=== PATIENT | male | born 1975 | race Caucasian/White ===

== ENCOUNTER 2017-05-31 05:36 | Inpatient (IN) | payer MEDICAID ==
--- NOTE | 2017-05-31 05:41 | C.PDOC ---
History Of Present Illness 41 year old male brought in via EMS from long-term for a complaint of SOB for the past 3 days. Patient is well known to ED; he has a Hx of ETOH/drug abuse and is a heavy smoker. Patient was given 125 solumedrol enroute along with 2 nebulizers , one with duoneb and another with albuterol. Denies chest pain, nausea, or palpitations. Chief Complaint (Nursing): Shortness Of Breath History Per: Patient History/Exam Limitations: no limitations Onset/Duration Of Symptoms: Days Current Symptoms Are (Timing): Still Present Initiating Event: Other (Not known) Current Respiratory Medications: None Associated Symptoms: denies: Fever, Chills, Chest Pain Recent travel outside of the [place]: No Past Medical History Reviewed: Historical Data, Nursing Documentation, Vital Signs Vital Signs: Last Vital Signs Temp 98.3 F 05/31/17 05:39 Pulse 95 H 05/31/17 06:19 Resp 18 05/31/17 06:19 BP 107/71 05/31/17 05:39 Pulse Ox 95 05/31/17 06:19 - Medical History PMH: No Chronic Diseases Surgical History: No Surg Hx - [facility] DETOXIFICATION SERVICES FOR SUBSTANCE ABUSE TREATMENT (06/04/16) INJECT/INFUSE NEC (10/03/14) Family History: States: Unknown Family Hx - Social History Hx Alcohol Use: Yes Hx Substance Use: Yes - Immunization History Hx Tetanus Toxoid Vaccination: No Hx Influenza Vaccination: No Hx Pneumococcal Vaccination: No Review Of Systems Constitutional: Negative for: Fever, Chills Cardiovascular: Negative for: Chest Pain, Palpitations Respiratory: Positive for: Shortness of Breath, Wheezing Gastrointestinal: Negative for: Nausea, Vomiting Neurological: Negative for: Weakness, Numbness Physical Exam - Physical Exam Appears: Non-toxic Skin: Normal Color, Warm, Dry Head: Atraumatic, Normacephalic Oral Mucosa: Moist Chest: Symmetrical, No Tenderness Cardiovascular: Rhythm Regular, No Murmur Respiratory: No Rales, No Rhonchi, Wheezing (Diffuse expiratory) Gastrointestinal/Abdominal: Soft, No Tenderness Neurological/Psych: Oriented x3, Normal Speech, Normal Cognition ED Course And Treatment - Laboratory Results Result Diagrams: 05/31/17 05:59 05/31/17 05:59 Progress Note: EKG, blood work, CXR, and urinalysis ordered. Disposition - Disposition Disposition Time: 07:00 Condition: FAIR Forms: [facility] (Irish) - Clinical Impression Clinical Impression: Dyspnea - Scribe Statement The provider has reviewed the documentation as recorded by the Scribe Baldemar Melissa All medical record entries made by the Scribe were at my direction and personally dictated by me. I have reviewed the chart and agree that the record accurately reflects my personal performance of the history, physical exam, medical decision making, and the department course for this patient. I have also personally directed, reviewed, and agree with the discharge instructions and disposition. Physician Patient Turnover Patient Signed Over To: Priscilla Tinsley Handoff Comments: labs and dispo pending
[2017-05-31 06:03] LABS: BASO # 0.1 K/uL (0.0-0.2); EOS # 1.2 K/uL (0.0-0.7); EOS % 10.2 % (0.0-4.0); HEMATOCRIT 39.3 % (35.0-51.0); LYMPH # 3.2 K/uL (1.0-4.3); LYMPH % 27.5 % (20.0-40.0); MEAN CELL VOLUME 82.4 fL (80.0-94.0); MEAN CORPUSCULAR HEMOGLOBIN 27.5 pg (27.0-31.0); MEAN CORPUSCULAR HGB CONC 33.3 g/dL (33.0-37.0); MEAN PLATELET VOLUME 8.6 fL (7.2-11.7); MONO # 1.1 K/uL (0.0-0.8); MONO % 9.1 % (0.0-10.0); RED CELL DISTRIBUTION WIDTH 13.5 % (11.5-14.5); WHITE BLOOD COUNT 11.6 K/uL (4.8-10.8)
[2017-05-31 06:14] LABS: INR 1.2
[2017-05-31] MEDS ORDERED: Albuterol-Ipratrop 3 mg / 0.5 (3 ml) UD IH STA (06:34)
[2017-05-31 06:41] LABS: ALB/GLOB RATIO 1.3 (1.0-2.1); ALKALINE PHOSPHATASE 73 U/L (38-126); ALT/SGPT 34 U/L (21-72); AST/SGOT 30 U/L (17-59); BILIRUBIN,TOTAL 0.5 mg/dL (0.2-1.3); BLOOD UREA NITROGEN 11 mg/dL (9-20); CALCIUM 8.9 mg/dl (8.6-10.4); CARBON DIOXIDE 25 mmol/L (22-30); CHLORIDE 99 mmol/L (98-107); GFR AFRICAN-AMERICAN > 60; GLUCOSE,RANDOM 104 mg/dL (75-110); POTASSIUM 3.9 mmol/L (3.6-5.2); SODIUM 136 mmol/L (132-148); TOTAL PROTEIN 6.8 g/dL (6.3-8.3)
[2017-05-31] MEDS ORDERED: Albuterol-Ipratrop 3 mg / 0.5 (3 ml) UD ONE (06:45)
[2017-05-31 07:25] LABS: URINE BILIRUBIN NEGATIVE (NEGATIVE); URINE COLOR YELLOW (YELLOW); URINE GLUCOSE (UA) Normal (Normal); URINE KETONE NEGATIVE (NEGATIVE)
[2017-05-31 07:26] LABS: RBC URINE < 1 /hpf (0-3); URINE BLOOD NEGATIVE (NEGATIVE); URINE LEUKOCYTE ESTERASE NEGATIVE Leu/uL (Negative); URINE PROTEIN NEGATIVE (NEGATIVE); URINE UROBILINOGEN Normal mg/dL (0.2-1.0)
--- NOTE | 2017-05-31 09:43 | RAD ---
PROCEDURE: CHEST RADIOGRAPH, 1 VIEW HISTORY: SOB COMPARISON: No prior FINDINGS: LUNGS: Mild left basilar atelectasis PLEURA: No pneumothorax or pleural fluid seen. CARDIOVASCULAR: Normal. OSSEOUS STRUCTURES: No significant abnormalities. VISUALIZED UPPER ABDOMEN: Normal. OTHER FINDINGS: None. IMPRESSION: Mild left basilar atelectasis
--- NOTE | 2017-05-31 12:04 | NM ---
VQ scan Technique: 7.2 mCi technetium 99-m Xe-133 Gas. 3.4 mCI technetium 99-m MAA administered intravenously. Comparison: Correlation is made to chest x-ray of same day. Findings: Perfusion images demonstrating moderate sized single mismatched perfusion defect within the left upper lobe. Activity otherwise extends expected margin of the lung periphery. Ventilation images do not show any significant areas of ventilation defects. Impression: Intermediate probability for pulmonary embolus.
[2017-05-31] MEDS ORDERED: Enoxaparin 100 mg Syringe SC STA (12:14)
--- NOTE | 2017-05-31 18:53 | CP.PCM.HP ---
Past Patient History - Past Medical History & Family History Past Medical History?: Yes - Past Social History Smoking Status: Heavy Smoker > 10 Cigarettes Daily - CARDIAC Hx Cardiac Disorders: No Hx Hypertension: No - PULMONARY Hx Chronic Obstructive Pulmonary Disease (COPD): Yes Hx Tuberculosis: No - NEUROLOGICAL Hx Neurological Disorder: No Hx Seizures: No - HEENT Hx HEENT Problems: No - RENAL Hx Chronic Kidney Disease: No - HEMATOLOGICAL/ONCOLOGICAL Hx Blood Disorders: No Hx Human Immunodeficiency Virus (HIV): No - INTEGUMENTARY Hx Dermatological Problems: No - MUSCULOSKELETAL/RHEUMATOLOGICAL Hx Musculoskeletal Disorders: Yes Hx Falls: Yes - GASTROINTESTINAL Hx Gastrointestinal Disorders: No - GENITOURINARY/GYNECOLOGICAL Hx Genitourinary Disorders: No Hx Sexually Transmitted Disorders: No - PSYCHIATRIC Hx Psychophysiologic Disorder: Yes Hx Substance Use: Yes (4-5 bags heroin a day) - SURGICAL HISTORY Hx Surgeries: No Hx Orthopedic Surgery: Yes ("nail in my thigh, had to open to remove it") Other/Comment: RIGHT KNEE SURGERY - ANESTHESIA Hx Anesthesia: Yes Hx Anesthesia Reactions: No Meds Allergies/Adverse Reactions: Allergies Allergy/AdvReac Type Severity Reaction Status Date / Time APPLE Allergy Uncoded 05/31/17 05:45 SHRIMP Allergy Uncoded 05/31/17 05:45 Physical Exam - Constitutional Appears: Well - Head Exam Head Exam: ATRAUMATIC, NORMAL INSPECTION, NORMOCEPHALIC - Eye Exam Eye Exam: EOMI, Normal appearance, PERRL Pupil Exam: NORMAL ACCOMODATION, PERRL - ENT Exam ENT Exam: Mucous Membranes Moist, Normal Exam - Neck Exam Neck exam: Positive for: Normal Inspection - Respiratory Exam Respiratory Exam: Decreased Breath Sounds - Cardiovascular Exam Cardiovascular Exam: REGULAR RHYTHM, +S1, +S2 - GI/Abdominal Exam GI & Abdominal Exam: Diminished Bowel Sounds, Soft - Rectal Exam Rectal Exam: Deferred Results - Vital Signs Recent Vital Signs: Last Vital Signs Temp 97.8 F 05/31/17 15:36 Pulse 80 05/31/17 15:36 Resp 18 05/31/17 15:40 BP 119/76 05/31/17 15:36 Pulse Ox 96 05/31/17 15:36 - Labs Result Diagrams: 05/31/17 05:59 05/31/17 05:59 Labs: Laboratory Results - last 24 hr 05/31/17 18:25 D-Dimer, Quantitative 330 H
[2017-05-31] MEDS ORDERED: Moxifloxacin IV 400mg/250ml NS 400 MG/250 ML BAG IVPB SCH (20:15)
[2017-05-31] MEDS: Enoxaparin 100 mg Syringe SC SCH (21:23)
[2017-05-31] MEDS: guaiFENesin DM 200 mg-20 mg/10 ml UD PO PRN (21:52)
[2017-05-31] MEDS: Azithromycin 500 MG in Sodium Chloride 0.9% 250 ML IVPB SCH (21:52)
[2017-06-01] MEDS: Albuterol-Ipratrop 3 mg / 0.5 (3 ml) UD INH SCH ×4 (02:28→19:02)
[2017-06-01 07:29] LABS: BASO # 0.1 K/uL (0.0-0.2); BASO % 0.8 % (0.0-2.0); EOS # 0.1 K/uL (0.0-0.7); EOS % 0.6 % (0.0-4.0); HEMATOCRIT 40.5 % (35.0-51.0); LYMPH # 2.7 K/uL (1.0-4.3); LYMPH % 16.9 % (20.0-40.0); MEAN CELL VOLUME 82.8 fL (80.0-94.0); MEAN CORPUSCULAR HEMOGLOBIN 27.5 pg (27.0-31.0); MEAN CORPUSCULAR HGB CONC 33.3 g/dL (33.0-37.0); MEAN PLATELET VOLUME 9.4 fL (7.2-11.7); MONO # 1.2 K/uL (0.0-0.8); MONO % 7.7 % (0.0-10.0); NRBC % 0.1 % (0.0-2.0); RED CELL DISTRIBUTION WIDTH 13.5 % (11.5-14.5)
[2017-06-01 07:42] LABS: CHLORIDE 102 mmol/L (98-107)
--- NOTE | 2017-06-01 07:42 | CP.PCM.CON ---
History of Present Illness - History of Present Illness History of Present Illness: Consultation request for evaluation of PE and SOB HPI: 41-year-old male with history of alc Alcohol and drug abuse presenting with complaints of shortness of breath and cough for 3 days. Patient underwent VQ scan in the emergency room showing moderate probability of pulmonary embolism. Initiated on anticoagulation for pulmonary embolism. No risk factors for hypercoagulable state. Heavy smoker and drug user active cocaine snorted. No family history of PE or thromboembolism. Review of Systems - Review of Systems All systems: reviewed and no additional remarkable complaints except - Constitutional Constitutional: As Per HPI, Fatigue - EENT Eyes: As Per HPI Ears: As Per HPI Nose/Mouth/Throat: As Per HPI - Cardiovascular Cardiovascular: As Per HPI, Dyspnea - Respiratory Respiratory: As Per HPI - Gastrointestinal Gastrointestinal: As Per HPI - Genitourinary Genitourinary: As Per HPI - Reproductive: Male Reproductive:Male: As Per HPI - Musculoskeletal Musculoskeletal: As Per HPI - Integumentary Integumentary: As Per HPI - Neurological Neurological: As Per HPI - Psychiatric Psychiatric: As Per HPI - Endocrine Endocrine: As Per HPI - Hematologic/Lymphatic Hematologic: As Per HPI Past Patient History - Past Medical History & Family History Past Medical History?: Yes Pertinent Family History: HTN - Past Social History Smoking Status: Heavy Smoker > 10 Cigarettes Daily - CARDIAC Hx Cardiac Disorders: No Hx Hypertension: No - PULMONARY Hx Chronic Obstructive Pulmonary Disease (COPD): Yes Hx Tuberculosis: No - NEUROLOGICAL Hx Neurological Disorder: No Hx Seizures: No - HEENT Hx HEENT Problems: No - RENAL Hx Chronic Kidney Disease: No - HEMATOLOGICAL/ONCOLOGICAL Hx Blood Disorders: No Hx Human Immunodeficiency Virus (HIV): No - INTEGUMENTARY Hx Dermatological Problems: No - MUSCULOSKELETAL/RHEUMATOLOGICAL Hx Musculoskeletal Disorders: Yes Hx Falls: Yes - GASTROINTESTINAL Hx Gastrointestinal Disorders: No - GENITOURINARY/GYNECOLOGICAL Hx Genitourinary Disorders: No Hx Sexually Transmitted Disorders: No - PSYCHIATRIC Hx Psychophysiologic Disorder: Yes Hx Substance Use: Yes (4-5 bags heroin a day) - SURGICAL HISTORY Hx Surgeries: No Hx Orthopedic Surgery: Yes ("nail in my thigh, had to open to remove it") Other/Comment: RIGHT KNEE SURGERY - ANESTHESIA Hx Anesthesia: Yes Hx Anesthesia Reactions: No Meds Allergies/Adverse Reactions: Allergies Allergy/AdvReac Type Severity Reaction Status Date / Time APPLE Allergy Uncoded 05/31/17 05:45 SHRIMP Allergy Uncoded 05/31/17 05:45 - Medications Medications: Current Medications Albuterol/Ipratropium (Duoneb 3 Mg/0.5 Mg (3 Ml) Ud) 3 ml INH RQ6 [facility] Last Admin: 06/01/17 02:28 Dose: 3 ml Enoxaparin Sodium (Lovenox) 100 mg SC Q12 [facility] Last Admin: 05/31/17 21:23 Dose: 100 mg Guaifenesin/Dextromethorphan (Robitussin Dm) 10 ml PO Q4H PRN PRN Reason: Cough and congestion Last Admin: 05/31/17 21:52 Dose: 10 ml Azithromycin 500 mg/ Sodium (Chloride) 250 mls @ 167 mls/hr IVPB Q24H [facility] Last Admin: 05/31/17 21:52 Dose: 167 mls/hr Ceftriaxone Sodium 1 gm/ (Sodium Chloride) 100 mls @ 200 mls/hr IVPB Q24H [facility] Last Admin: 05/31/17 20:58 Dose: 200 mls/hr Montelukast Sodium (Singulair) 10 mg PO HS [facility] Last Admin: 05/31/17 21:22 Dose: 10 mg Fluticasone/Salmeterol (Advair Diskus 250/50) 1 puff INH RQ12 [facility] Physical Exam - Constitutional Appears: Well - Head Exam Head Exam: ATRAUMATIC, NORMAL INSPECTION, NORMOCEPHALIC - Eye Exam Eye Exam: EOMI, Normal appearance, PERRL Pupil Exam: NORMAL ACCOMODATION, PERRL - ENT Exam ENT Exam: Mucous Membranes Moist, Normal Exam - Neck Exam Neck exam: Positive for: Normal Inspection - Respiratory Exam Respiratory Exam: Clear to Auscultation Bilateral, NORMAL BREATHING PATTERN - Cardiovascular Exam Cardiovascular Exam: REGULAR RHYTHM, RRR, +S1, +S2, Systolic Murmur - GI/Abdominal Exam GI & Abdominal Exam: Normal Bowel Sounds, Soft. absent: Tenderness - Extremities Exam Extremities exam: Positive for: normal inspection - Back Exam Back exam: NORMAL INSPECTION - Neurological Exam Neurological exam: Alert, CN II-XII Intact, Normal Gait, Oriented x3, Reflexes Normal - Psychiatric Exam Psychiatric exam: Normal Affect, Normal Mood - Skin Skin Exam: Dry, Intact, Normal Color, Warm Results - Vital Signs Recent Vital Signs: Last Vital Signs Temp 98.3 F 06/01/17 07:24 Pulse 78 06/01/17 07:24 Resp 20 06/01/17 07:24 BP 95/60 L 06/01/17 07:24 Pulse Ox 96 06/01/17 07:24 - Labs Result Diagrams: 06/01/17 07:13 06/01/17 07:13 Labs: Laboratory Results - last 24 hr 05/31/17 06/01/17 18:25 07:13 WBC 16.0 H RBC 4.89 Hgb 13.5 Hct 40.5 MCV 82.8 MCH 27.5 MCHC 33.3 RDW 13.5 Plt Count 380 MPV 9.4 Neut % (Auto) 74.0 Lymph % (Auto) 16.9 L [place] % (Auto) 7.7 Eos % (Auto) 0.6 Baso % (Auto) 0.8 Neut # 11.9 H Lymph # 2.7 Will # 1.2 H Eos # 0.1 Baso # 0.1 D-Dimer, Quantitative 330 H Assessment & Plan (1) Pulmonary embolism Assessment and Plan: v/q scan intermediate probability CT Angio PE protocol echo cont with AC Status: Acute (2) Dyspnea Assessment and Plan: ? 2' to interstitial lung dz from cocaine snorting pulm eval consider steroids Status: Acute (3) COPD exacerbation Assessment and Plan: 2' to smoking and snorting cocaine bronhodilators Status: Acute
[2017-06-01 07:43] LABS: POTASSIUM 4.1 mmol/L (3.6-5.2); SODIUM 140 mmol/L (132-148)
[2017-06-01 07:45] LABS: ALB/GLOB RATIO 1.1 (1.0-2.1); AST/SGOT 24 U/L (17-59); BILIRUBIN,TOTAL 0.5 mg/dL (0.2-1.3); CARBON DIOXIDE 25 mmol/L (22-30); GFR AFRICAN-AMERICAN > 60; TOTAL PROTEIN 7.3 g/dL (6.3-8.3)
[2017-06-01 07:46] LABS: ALKALINE PHOSPHATASE 81 U/L (38-126); ALT/SGPT 31 U/L (21-72); BLOOD UREA NITROGEN 12 mg/dL (9-20); CALCIUM 9.2 mg/dl (8.6-10.4); GLUCOSE,RANDOM 88 mg/dL (75-110)
[2017-06-01] MEDS: Fluticasone-Salmeterol 250-50mcg Diskus INH SCH ×2 (08:30→19:02)
[2017-06-01] MEDS: Enoxaparin 100 mg Syringe SC SCH ×2 (09:10→21:28)
[2017-06-01] MEDS ORDERED: Enoxaparin 100 mg Syringe SC SCH (10:00)
--- NOTE | 2017-06-01 10:21 | CP.PCM.CON ---
History of Present Illness - History of Present Illness History of Present Illness: reason for consultation: shortness of breath and abnormal VQ scan 41 year old male brought in via EMS from half-way for a complaint of SOB for the past 3 days. Patient has a Hx of ETOH/drug abuse and is a heavy smoker. Shortness of breath is both at rest and on exertion and associated with dry cough. VQ scan done in the emergency room consistent with intermediate probability for pulmonary embolism. Patient started on Lovenox. Denies any swelling or pain in the legs. Patient seen lying comfortably in no acute distress but complaining of dry cough Review of Systems - Review of Systems All systems: reviewed and no additional remarkable complaints except (shortness of breath and cough) Past Patient History - Past Medical History & Family History Past Medical History?: Yes - Past Social History Smoking Status: Heavy Smoker > 10 Cigarettes Daily - CARDIAC Hx Cardiac Disorders: No Hx Hypertension: No - PULMONARY Hx Chronic Obstructive Pulmonary Disease (COPD): Yes Hx Tuberculosis: No - NEUROLOGICAL Hx Neurological Disorder: No Hx Seizures: No - HEENT Hx HEENT Problems: No - RENAL Hx Chronic Kidney Disease: No - HEMATOLOGICAL/ONCOLOGICAL Hx Blood Disorders: No Hx Human Immunodeficiency Virus (HIV): No - INTEGUMENTARY Hx Dermatological Problems: No - MUSCULOSKELETAL/RHEUMATOLOGICAL Hx Musculoskeletal Disorders: Yes Hx Falls: Yes - GASTROINTESTINAL Hx Gastrointestinal Disorders: No - GENITOURINARY/GYNECOLOGICAL Hx Genitourinary Disorders: No Hx Sexually Transmitted Disorders: No - PSYCHIATRIC Hx Psychophysiologic Disorder: Yes Hx Substance Use: Yes (4-5 bags heroin a day) - SURGICAL HISTORY Hx Surgeries: No Hx Orthopedic Surgery: Yes ("nail in my thigh, had to open to remove it") Other/Comment: RIGHT KNEE SURGERY - ANESTHESIA Hx Anesthesia: Yes Hx Anesthesia Reactions: No Meds Allergies/Adverse Reactions: Allergies Allergy/AdvReac Type Severity Reaction Status Date / Time APPLE Allergy Uncoded 05/31/17 05:45 SHRIMP Allergy Uncoded 05/31/17 05:45 - Medications Medications: Current Medications Albuterol/Ipratropium (Duoneb 3 Mg/0.5 Mg (3 Ml) Ud) 3 ml INH RQ6 [facility] Last Admin: 06/01/17 08:30 Dose: 3 ml Enoxaparin Sodium (Lovenox) 100 mg SC Q12 [facility] Last Admin: 06/01/17 09:10 Dose: 100 mg Guaifenesin/Dextromethorphan (Robitussin Dm) 10 ml PO Q4H PRN PRN Reason: Cough and congestion Last Admin: 05/31/17 21:52 Dose: 10 ml Azithromycin 500 mg/ Sodium (Chloride) 250 mls @ 167 mls/hr IVPB Q24H [facility] Last Admin: 05/31/17 21:52 Dose: 167 mls/hr Ceftriaxone Sodium 1 gm/ (Sodium Chloride) 100 mls @ 200 mls/hr IVPB Q24H [facility] Last Admin: 05/31/17 20:58 Dose: 200 mls/hr Montelukast Sodium (Singulair) 10 mg PO HS [facility] Last Admin: 05/31/17 21:22 Dose: 10 mg Fluticasone/Salmeterol (Advair Diskus 250/50) 1 puff INH RQ12 [facility] Last Admin: 06/01/17 08:30 Dose: Not Given Physical Exam - Constitutional Appears: No Acute Distress - Head Exam Head Exam: ATRAUMATIC, NORMOCEPHALIC - Eye Exam Eye Exam: Normal appearance - ENT Exam ENT Exam: Mucous Membranes Moist - Neck Exam Neck exam: Positive for: Normal Inspection - Respiratory Exam Respiratory Exam: Clear to Auscultation Bilateral - Cardiovascular Exam Cardiovascular Exam: REGULAR RHYTHM - GI/Abdominal Exam GI & Abdominal Exam: Normal Bowel Sounds, Soft - Extremities Exam Extremities exam: Positive for: normal inspection - Neurological Exam Neurological exam: Alert, Oriented x3 Results - Vital Signs Recent Vital Signs: Last Vital Signs Temp 98.3 F 06/01/17 07:24 Pulse 78 06/01/17 07:24 Resp 20 06/01/17 07:24 BP 95/60 L 06/01/17 07:24 Pulse Ox 96 06/01/17 07:24 - Labs Result Diagrams: 06/01/17 07:13 06/01/17 07:13 Labs: Laboratory Results - last 24 hr 05/31/17 06/01/17 06/01/17 18:25 07:13 07:13 WBC 16.0 H RBC 4.89 Hgb 13.5 Hct 40.5 MCV 82.8 MCH 27.5 MCHC 33.3 RDW 13.5 Plt Count 380 MPV 9.4 Neut % (Auto) 74.0 Lymph % (Auto) 16.9 L [place] % (Auto) 7.7 Eos % (Auto) 0.6 Baso % (Auto) 0.8 Neut # 11.9 H Lymph # 2.7 [place] # 1.2 H Eos # 0.1 Baso # 0.1 D-Dimer, Quantitative 330 H Sodium 140 Potassium 4.1 Chloride 102 Carbon Dioxide 25 Anion Gap 17 BUN 12 Creatinine 0.5 L Est GFR ( Amer) > 60 Est GFR (Non-Af Amer) > 60 Random Glucose 88 Calcium 9.2 Total Bilirubin 0.5 AST 24 ALT 31 Alkaline Phosphatase 81 Total Protein 7.3 Albumin 3.8 Globulin 3.5 Albumin/Globulin Ratio 1.1 Assessment & Plan (1) Dyspnea Status: Acute Comment: VQ scan consistent with intermediate probability. Consider CT angio. Continue Lovenox for now. Venous Doppler lower extremities (2) COPD exacerbation Status: Acute Comment: patient is long history of smoking. Continue nebulizer treatment and Advair. Continue antitussive
--- NOTE | 2017-06-01 15:49 | CP.PCM.PN ---
Subjective - Date & Time of Evaluation Date of Evaluation: 06/01/17 Time of Evaluation: 10:20 - Subjective Subjective: clinically same Objective - Vital Signs/Intake and Output Vital Signs (last 24 hours): Temp Pulse Resp BP Pulse Ox 98.3 F 78 20 95/60 L 96 06/01/17 07:24 06/01/17 07:24 06/01/17 07:24 06/01/17 07:24 06/01/17 07:24 Intake and Output: 06/01/17 06/01/17 06:59 18:59 Intake Total 570 300 Balance 570 300 - Medications Medications: Current Medications Albuterol/Ipratropium (Duoneb 3 Mg/0.5 Mg (3 Ml) Ud) 3 ml INH RQ6 [facility] Last Admin: 06/01/17 13:40 Dose: 3 ml Enoxaparin Sodium (Lovenox) 100 mg SC Q12 [facility] Last Admin: 06/01/17 09:10 Dose: 100 mg Guaifenesin/Dextromethorphan (Robitussin Dm) 10 ml PO Q4H PRN PRN Reason: Cough and congestion Last Admin: 05/31/17 21:52 Dose: 10 ml Azithromycin 500 mg/ Sodium (Chloride) 250 mls @ 167 mls/hr IVPB Q24H [facility] Last Admin: 05/31/17 21:52 Dose: 167 mls/hr Ceftriaxone Sodium 1 gm/ (Sodium Chloride) 100 mls @ 200 mls/hr IVPB Q24H [facility] Last Admin: 05/31/17 20:58 Dose: 200 mls/hr Lorazepam (Ativan) 0.5 mg PO TID PRN PRN Reason: Anxiety Methadone HCl (Methadone) 10 mg PO ONCE ONE Stop: 06/01/17 19:01 Methadone HCl (Methadone) 5 mg PO DAILY [facility] Stop: 06/04/17 10:01 Montelukast Sodium (Singulair) 10 mg PO HS [facility] Last Admin: 05/31/17 21:22 Dose: 10 mg Fluticasone/Salmeterol (Advair Diskus 250/50) 1 puff INH RQ12 [facility] Last Admin: 06/01/17 08:30 Dose: Not Given Trazodone HCl (Desyrel) 100 mg PO HS [facility] - Labs Labs: 06/01/17 07:13 06/01/17 07:13 PT 13.3 SECONDS (9.7-12.2) H 05/31/17 05:59 INR 1.2 05/31/17 05:59 APTT 29 SECONDS (21-34) 05/31/17 05:59 - Constitutional Appears: Well - Head Exam Head Exam: ATRAUMATIC, NORMAL INSPECTION, NORMOCEPHALIC - Eye Exam Eye Exam: EOMI, Normal appearance, PERRL Pupil Exam: NORMAL ACCOMODATION, PERRL - ENT Exam ENT Exam: Mucous Membranes Moist, Normal Exam - Neck Exam Neck Exam: Full ROM, Normal Inspection. absent: Lymphadenopathy - Respiratory Exam Respiratory Exam: Decreased Breath Sounds - Cardiovascular Exam Cardiovascular Exam: REGULAR RHYTHM, +S1, +S2 - GI/Abdominal Exam GI & Abdominal Exam: Soft, Diminished Bowel Sounds - Rectal Exam Rectal Exam: Deferred
--- NOTE | 2017-06-01 16:18 | PCM.PSYCH ---
Initial Psychiatric Evaluation - Initial Psychiatric Evaluation Type of Admission: Voluntary Legal Status: Capacity Chief Complaint (in patient's own words): Consultation to speak with psychiatrist about opiate dependence History of Present Illness and Precipitating Events: Pt is a 41 year old man with a history of COPD and opiate dependence who presented to the ED 05/31/17 for dyspnea, COPD exacerbation, and pulmonary embolism. He reports that heroin is the only thing that was "helping him breath " before he presented to the ED. Psychiatry was called for consultation because pt has a 4 year history of using opiates on and off. For the past two years he reports to snorting 4-6 bags daily. His last use of heroin was 05/30/17. He also reports that he uses suboxone and brought one 8 mg film to the hospital in one of his pockets. He reported to have used about 2 or 4 mg of suboxone early this morning. Pt agreed to hand over his remaining suboxone to the nurse (witnessed). Pt agrees to start methadone detox here. Pt reports he is not experiencing symptoms of withdrawal at this time "but will soon" Pt denies the use of alcohol and other drugs. He reports to smoke 1 pack of cigarettes daily. Pt refuses nicotine patch. He denies prior psychiatric hospitalization and history of outpt care, trauma or suicide. Past Medical History: COPD Family Medical History: Denies Social History: Single, has 2 children, lives in a jail, works in construction Current Medications: Active Medications Generic Name Dose Route Start Last Admin Trade Name Freq PRN Reason Stop Dose Admin Albuterol/Ipratropium 3 ml 06/01/17 02:00 06/01/17 13:40 Duoneb 3 Mg/0.5 Mg (3 Ml) Ud INH 3 ml RQ6 [facility] Administration Enoxaparin Sodium 100 mg 05/31/17 22:00 06/01/17 09:10 Lovenox SC 100 mg Q12 [facility] Administration Guaifenesin/Dextromethorphan 10 ml 05/31/17 21:12 05/31/17 21:52 Robitussin Dm PO 10 ml Q4H PRN Administration Cough and congestion Azithromycin 500 mg/ Sodium 250 mls @ 167 mls/hr 05/31/17 22:00 05/31/17 21: 52 Chloride IVPB 167 mls/hr Q24H [facility] Administration Ceftriaxone Sodium 1 gm/ 100 mls @ 200 mls/hr 05/31/17 21:00 05/31/17 20:58 Sodium Chloride IVPB 200 mls/hr Q24H [facility] Administration Lorazepam 0.5 mg 06/01/17 11:29 Ativan PO TID PRN Anxiety Methadone HCl 10 mg 06/01/17 19:00 Methadone PO 06/01/17 19:01 ONCE ONE Methadone HCl 5 mg 06/02/17 10:00 Methadone PO 06/04/17 10:01 DAILY [facility] Montelukast Sodium 10 mg 05/31/17 22:00 05/31/17 21:22 Singulair PO 10 mg HS [facility] Administration Fluticasone/Salmeterol 1 puff 06/01/17 08:00 06/01/17 08:30 Advair Diskus 250/50 INH Not Given RQ12 [facility] Trazodone HCl 100 mg 06/01/17 22:00 Desyrel PO HS [facility] Past Psychiatric History - Past Psychiatric History Previous Treatment History: None Pertinent Medical Hx (Current Medical&Sleep Prob, Allergies): Allergies Allergy/AdvReac Type Severity Reaction Status Date / Time APPLE Allergy Uncoded 05/31/17 05:45 SHRIMP Allergy Uncoded 05/31/17 05:45 No Known Home Med 05/31/17 Review of Systems - Psychiatric Psychiatric: Abnormal Sleep Pattern. absent: Hallucinations, Homicidal Ideation , Paranoia, Suicidal Ideation Mental Status Examination - Personal Presentation Personal Presentation: Looks stated age - Affect Affect: Constricted - Motor Activity Motor Activity: Calm - Reliability in Providing Information Reliability in Providing Information: Good - Speech Speech: Organized - Mood Mood: Anxious - Formal Thought Process Formal Thought Process: No Impairment - Obsessions/Compulsions Obsessions: No Compulsions: No - Cognitive Functions Orientation: Person, Place, Situation, Time Sensorium: Alert Attention/Concentration: Attentive Estimate of Intelligence: Average Judgement: Intact, as evidence by: Insight regarding need for hospitalization Memory: Recent intact, as evidence by: Ability to recall events of the day, Remote intact, as evidenced by: Abilit to recall sig. life events - Risk Risk: Withdrawal, Diminished functioning - Strength & Assets Inventory Strength & Assets Inventory: Cooperative - Limitations Limitations: Living alone DSM 5 DX - DSM 5 DSM 5 Diagnosis: Opioid withdrawal Opioid use d/o - severe - Recommended/Plan of Treatment Treatment Recommendations and Plan of Treatment: Opioid use disorder: Psychoeducation Supportive therapy, individual therapy Use [place] for abstinence Opioid withdrawal Psychoeducation Supportive therapy, individual therapy Methadone taper Lorazepam 0.5 mg PO TID PRN Trazodone 100 mg PO prn 32 min - Smoking Cessation Smoking Cessation Initiated: No Reason for not providing: Pt refuses nicotine patch
--- NOTE | 2017-06-01 16:23 | PCM.PSYCH ---
Initial Psychiatric Evaluation - Initial Psychiatric Evaluation Legal Status: Capacity Chief Complaint (in patient's own words): Consultation to speak with psychiatrist about heroin dependence Current Medications: Active Medications Generic Name Dose Route Start Last Admin Trade Name Loulou PRN Reason Stop Dose Admin Albuterol/Ipratropium 3 ml 06/01/17 02:00 06/01/17 13:40 Duoneb 3 Mg/0.5 Mg (3 Ml) Ud INH 3 ml RQ6 [facility] Administration Enoxaparin Sodium 100 mg 05/31/17 22:00 06/01/17 09:10 Lovenox SC 100 mg Q12 [facility] Administration Guaifenesin/Dextromethorphan 10 ml 05/31/17 21:12 05/31/17 21:52 Robitussin Dm PO 10 ml Q4H PRN Administration Cough and congestion Azithromycin 500 mg/ Sodium 250 mls @ 167 mls/hr 05/31/17 22:00 05/31/17 21: 52 Chloride IVPB 167 mls/hr Q24H [facility] Administration Ceftriaxone Sodium 1 gm/ 100 mls @ 200 mls/hr 05/31/17 21:00 05/31/17 20:58 Sodium Chloride IVPB 200 mls/hr Q24H [facility] Administration Lorazepam 0.5 mg 06/01/17 11:29 Ativan PO TID PRN Anxiety Methadone HCl 10 mg 06/01/17 19:00 Methadone PO 06/01/17 19:01 ONCE ONE Methadone HCl 5 mg 06/02/17 10:00 Methadone PO 06/04/17 10:01 DAILY [facility] Montelukast Sodium 10 mg 05/31/17 22:00 05/31/17 21:22 Singulair PO 10 mg HS [facility] Administration Fluticasone/Salmeterol 1 puff 06/01/17 08:00 06/01/17 08:30 Advair Diskus 250/50 INH Not Given RQ12 [facility] Trazodone HCl 100 mg 06/01/17 22:00 Desyrel PO HS [facility] Past Psychiatric History - Past Psychiatric History Pertinent Medical Hx (Current Medical&Sleep Prob, Allergies): Allergies Allergy/AdvReac Type Severity Reaction Status Date / Time APPLE Allergy Uncoded 05/31/17 05:45 SHRIMP Allergy Uncoded 05/31/17 05:45 No Known Home Med 05/31/17
--- NOTE | 2017-06-01 17:42 | CARD ---
APPROVED REPORT EXAM: Two-dimensional and M-mode echocardiogram with Doppler and color Doppler. Other Information Quality : GoodRhythm : NSR INDICATION Dyspnea Pulmonary Embolism COPD ALCOHOL ABUSE 2D DIMENSIONS IVSd0.8 (0.7-1.1cm)LVDd4.9 (3.9-5.9cm) PWd0.7 (0.7-1.1cm)LVDs3.5 (2.5-4.0cm) FS (%) 27.4 %LVEF (%)53.2 (>50%) M-Mode DIMENSIONS Left Atrium (MM)3.78 (2.5-4.0cm)Aortic Root3.58 (2.2-3.7cm) Aortic Cusp Exc.2.40 (1.5-2.0cm) Mitral Valve MV E Ujcbgshr88.8cm/sMV A Qitmgklt46.1cm/sE/A ratio1.2 TDI E/Lateral E'0.0E/Medial E'0.0 Tricuspid Valve TR Peak Autfoswt622ev/sTR Peak Gr.[id number] LEFT VENTRICLE The left ventricle is normal size. There is normal left ventricular wall thickness. The left ventricular function is normal. The left ventricular ejection fraction is within the normal range. There is normal LV segmental wall motion. The left ventricular diastolic function is normal. RIGHT VENTRICLE The right ventricle is normal size. ATRIA The right atrium size is normal. AORTIC VALVE The aortic valve is normal in structure. MITRAL VALVE Mitral regurgitation is trace. TRICUSPID VALVE There is trace tricuspid regurgitation. <Conclusion> Normal LV systolic function. Normal chamber size. Trace MR. Trace TR.
[2017-06-01] MEDS: guaiFENesin DM 200 mg-20 mg/10 ml UD PO PRN (19:00)
[2017-06-01] MEDS: Azithromycin 500 MG in Sodium Chloride 0.9% 250 ML IVPB SCH (21:30)
[2017-06-02 00:41] VITALS: RESP 20
[2017-06-02] MEDS: Albuterol-Ipratrop 3 mg / 0.5 (3 ml) UD INH SCH ×4 (01:28→20:02)
[2017-06-02] MEDS: Fluticasone-Salmeterol 250-50mcg Diskus INH SCH ×2 (07:48→20:02)
[2017-06-02] MEDS: Enoxaparin 100 mg Syringe SC SCH (11:10)
[2017-06-02] MEDS ORDERED: DiphenhydrAMINE 50 mg/ml Inj IVP STA (11:42)
--- NOTE | 2017-06-02 11:52 | CARD ---
APPROVED REPORT EKG Measurement Heart [id number] <Conclusion> Normal sinus rhythm Normal ECG
--- NOTE | 2017-06-02 18:11 | CP.PCM.PN ---
Subjective - Date & Time of Evaluation Date of Evaluation: 06/02/17 Time of Evaluation: 09:40 - Subjective Subjective: clinically same Objective - Vital Signs/Intake and Output Vital Signs (last 24 hours): Temp Pulse Resp BP Pulse Ox 97.9 F 91 H 20 103/69 98 06/02/17 08:00 06/02/17 08:00 06/02/17 08:00 06/02/17 08:00 06/02/17 08:00 Intake and Output: 06/02/17 06/02/17 06:59 18:59 Intake Total 850 Balance 850 - Medications Medications: Current Medications Albuterol/Ipratropium (Duoneb 3 Mg/0.5 Mg (3 Ml) Ud) 3 ml INH RQ6 [facility] Last Admin: 06/02/17 14:03 Dose: Not Given Enoxaparin Sodium (Lovenox) 100 mg SC Q12 [facility] Last Admin: 06/02/17 11:10 Dose: 100 mg Guaifenesin/Dextromethorphan (Robitussin Dm) 10 ml PO Q4H PRN PRN Reason: Cough and congestion Last Admin: 06/01/17 19:00 Dose: 10 ml Azithromycin 500 mg/ Sodium (Chloride) 250 mls @ 167 mls/hr IVPB Q24H [facility] Last Admin: 06/01/17 21:30 Dose: 167 mls/hr Ceftriaxone Sodium 1 gm/ (Sodium Chloride) 100 mls @ 200 mls/hr IVPB Q24H [facility] Last Admin: 06/01/17 20:53 Dose: 200 mls/hr Lorazepam (Ativan) 0.5 mg PO TID PRN PRN Reason: Anxiety Methadone HCl (Methadone) 5 mg PO DAILY [facility] Stop: 06/04/17 10:01 Last Admin: 06/02/17 11:10 Dose: 5 mg Montelukast Sodium (Singulair) 10 mg PO HS [facility] Last Admin: 06/01/17 21:27 Dose: 10 mg Fluticasone/Salmeterol (Advair Diskus 250/50) 1 puff INH RQ12 [facility] Last Admin: 06/02/17 07:48 Dose: 1 puff Trazodone HCl (Desyrel) 100 mg PO HS [facility] Last Admin: 06/01/17 21:27 Dose: 100 mg - Labs Labs: 06/01/17 07:13 06/01/17 07:13 PT 13.3 SECONDS (9.7-12.2) H 05/31/17 05:59 INR 1.2 05/31/17 05:59 APTT 29 SECONDS (21-34) 05/31/17 05:59 - Constitutional Appears: Well - Head Exam Head Exam: ATRAUMATIC, NORMAL INSPECTION, NORMOCEPHALIC - Eye Exam Eye Exam: EOMI, Normal appearance, PERRL Pupil Exam: NORMAL ACCOMODATION, PERRL - ENT Exam ENT Exam: Mucous Membranes Moist, Normal Exam - Neck Exam Neck Exam: Full ROM, Normal Inspection. absent: Lymphadenopathy - Respiratory Exam Respiratory Exam: Decreased Breath Sounds - Cardiovascular Exam Cardiovascular Exam: REGULAR RHYTHM, +S1, +S2 - GI/Abdominal Exam GI & Abdominal Exam: Soft, Diminished Bowel Sounds - Rectal Exam Rectal Exam: Deferred
[2017-06-02] MEDS ORDERED: Enoxaparin 100 mg Syringe SC SCH (18:17)
--- NOTE | 2017-06-02 18:17 | CT ---
PROCEDURE: CT Chest with contrast (Pulmonary Angiogram) HISTORY: r/o pulm embolism COMPARISON: Comparison is made to the previous V/Q scan dated 05/31/2017 TECHNIQUE: Axial computed tomography images were obtained of the chest in the pulmonary arterial phase of enhancement. Coronal and sagittal reformatted images were created and reviewed. Intravenous contrast dose: 100 mL Visipaque 320. Radiation dose: Total exam DLP = 498.51 mGy-cm. This CT exam was performed using one or more of the following dose reduction techniques: Automated exposure control, adjustment of the mA and/or kV according to patient size, and/or use of iterative reconstruction technique. FINDINGS: PULMONARY ARTERIES: Unremarkable. No pulmonary embolism. AORTA: No acute findings. No thoracic aortic aneurysm. LUNGS: There is infiltrate and focal opacity at the left lower lobe suspicious for pneumonia. There are also patchy ground-glass opacities at the right lung nonspecific and may re- related to infection or inflammatory process PLEURAL SPACES: Unremarkable. No effusion or pneuomothorax. HEART: Unremarkable. No cardiomegaly. No significant pericardial effusion. LYMPH NODES: No lymphadenopathy. BONES, CHEST WALL: Unremarkable. No fracture or destructive lesion OTHER FINDINGS: Unremarkable. IMPRESSION: No evidence of pulmonary embolus. Focal opacity at the left lower lobe suspicious for pneumonia. Please correlate clinically. Small foci of ground-glass opacities are seen at the central portion of the right lung, nonspecific may related to infection or inflammatory process. Otherwise no evidence of acute pathology in the chest.
--- NOTE | 2017-06-02 18:24 | CP.PCM.PN ---
Subjective - Date & Time of Evaluation Date of Evaluation: 06/02/17 Time of Evaluation: 18:00 - Subjective Subjective: Patient seen and examined. Complaining of cough with blood-tinged sputum On Lovenox CT angiogram done Afebrile No chest pain No shortness of breath Objective - Vital Signs/Intake and Output Vital Signs (last 24 hours): Temp Pulse Resp BP Pulse Ox 97.9 F 91 H 20 103/69 98 06/02/17 08:00 06/02/17 08:00 06/02/17 08:00 06/02/17 08:00 06/02/17 08:00 Intake and Output: 06/02/17 06/02/17 06:59 18:59 Intake Total 850 Balance 850 - Medications Medications: Current Medications Albuterol/Ipratropium (Duoneb 3 Mg/0.5 Mg (3 Ml) Ud) 3 ml INH RQ6 [facility] Last Admin: 06/02/17 14:03 Dose: Not Given Enoxaparin Sodium (Lovenox) 75 mg SC Q12 [facility] Guaifenesin/Dextromethorphan (Robitussin Dm) 10 ml PO Q4H PRN PRN Reason: Cough and congestion Last Admin: 06/01/17 19:00 Dose: 10 ml Azithromycin 500 mg/ Sodium (Chloride) 250 mls @ 167 mls/hr IVPB Q24H [facility] Last Admin: 06/01/17 21:30 Dose: 167 mls/hr Ceftriaxone Sodium 1 gm/ (Sodium Chloride) 100 mls @ 200 mls/hr IVPB Q24H [facility] Last Admin: 06/01/17 20:53 Dose: 200 mls/hr Lorazepam (Ativan) 0.5 mg PO TID PRN PRN Reason: Anxiety Methadone HCl (Methadone) 5 mg PO DAILY [facility] Stop: 06/04/17 10:01 Last Admin: 06/02/17 11:10 Dose: 5 mg Montelukast Sodium (Singulair) 10 mg PO [facility] Last Admin: 06/01/17 21:27 Dose: 10 mg Fluticasone/Salmeterol (Advair Diskus 250/50) 1 puff INH RQ12 [facility] Last Admin: 06/02/17 07:48 Dose: 1 puff Trazodone HCl (Desyrel) 100 mg PO [facility] Last Admin: 06/01/17 21:27 Dose: 100 mg - Labs Labs: 06/01/17 07:13 06/01/17 07:13 PT 13.3 SECONDS (9.7-12.2) H 05/31/17 05:59 INR 1.2 05/31/17 05:59 APTT 29 SECONDS (21-34) 05/31/17 05:59 - Head Exam Head Exam: ATRAUMATIC, NORMOCEPHALIC - Eye Exam Eye Exam: Normal appearance - ENT Exam ENT Exam: Mucous Membranes Moist - Neck Exam Neck Exam: Normal Inspection - Respiratory Exam Respiratory Exam: Clear to Ausculation Bilateral - Cardiovascular Exam Cardiovascular Exam: REGULAR RHYTHM - GI/Abdominal Exam GI & Abdominal Exam: Soft, Normal Bowel Sounds - Extremities Exam Extremities Exam: Full ROM, Normal Inspection Assessment and Plan (1) Dyspnea Assessment & Plan: Awaiting official report for CAT scan of the chest No pulmonary embolism seen Continue Lovenox for now Status: Acute (2) COPD exacerbation Status: Acute
[2017-06-02] MEDS ORDERED: Enoxaparin 80 mg Syringe SC SCH (19:00)
--- NOTE | 2017-06-02 19:17 | CP.PCM.PN ---
Subjective - Date & Time of Evaluation Date of Evaluation: 06/02/17 Time of Evaluation: 19:35 - Subjective Subjective: c/o hemoptysis CT angio -ve for PE Objective - Vital Signs/Intake and Output Vital Signs (last 24 hours): Temp Pulse Resp BP Pulse Ox 97.9 F 91 H 20 103/69 98 06/02/17 08:00 06/02/17 08:00 06/02/17 08:00 06/02/17 08:00 06/02/17 08:00 - Medications Medications: Current Medications Albuterol/Ipratropium (Duoneb 3 Mg/0.5 Mg (3 Ml) Ud) 3 ml INH RQ6 [facility] Last Admin: 06/02/17 14:03 Dose: Not Given Enoxaparin Sodium (Lovenox) 75 mg SC Q12H [facility] Guaifenesin/Dextromethorphan (Robitussin Dm) 10 ml PO Q4H PRN PRN Reason: Cough and congestion Last Admin: 06/01/17 19:00 Dose: 10 ml Azithromycin 500 mg/ Sodium (Chloride) 250 mls @ 167 mls/hr IVPB Q24H [facility] Last Admin: 06/01/17 21:30 Dose: 167 mls/hr Ceftriaxone Sodium 1 gm/ (Sodium Chloride) 100 mls @ 200 mls/hr IVPB Q24H [facility] Last Admin: 06/01/17 20:53 Dose: 200 mls/hr Lorazepam (Ativan) 0.5 mg PO TID PRN PRN Reason: Anxiety Methadone HCl (Methadone) 5 mg PO DAILY [facility] Stop: 06/04/17 10:01 Last Admin: 06/02/17 11:10 Dose: 5 mg Montelukast Sodium (Singulair) 10 mg PO HS [facility] Last Admin: 06/01/17 21:27 Dose: 10 mg Fluticasone/Salmeterol (Advair Diskus 250/50) 1 puff INH RQ12 [facility] Last Admin: 06/02/17 07:48 Dose: 1 puff Trazodone HCl (Desyrel) 100 mg PO HS [facility] Last Admin: 06/01/17 21:27 Dose: 100 mg - Labs Labs: 06/01/17 07:13 06/01/17 07:13 PT 13.3 SECONDS (9.7-12.2) H 05/31/17 05:59 INR 1.2 05/31/17 05:59 APTT 29 SECONDS (21-34) 05/31/17 05:59 - Constitutional Appears: Well - Head Exam Head Exam: ATRAUMATIC, NORMAL INSPECTION, NORMOCEPHALIC - Eye Exam Eye Exam: EOMI, Normal appearance, PERRL Pupil Exam: NORMAL ACCOMODATION, PERRL - ENT Exam ENT Exam: Mucous Membranes Moist, Normal Exam - Neck Exam Neck Exam: Full ROM, Normal Inspection. absent: Lymphadenopathy - Respiratory Exam Respiratory Exam: Clear to Ausculation Bilateral, Wheezes, NORMAL BREATHING PATTERN - Cardiovascular Exam Cardiovascular Exam: REGULAR RHYTHM, +S1, +S2, Murmur - GI/Abdominal Exam GI & Abdominal Exam: Soft, Normal Bowel Sounds. absent: Tenderness - Extremities Exam Extremities Exam: Full ROM, Normal Capillary Refill, Normal Inspection. absent : Joint Swelling, Pedal Edema - Back Exam Back Exam: NORMAL INSPECTION - Neurological Exam Neurological Exam: Alert, Awake, CN II-XII Intact, Normal Gait, Oriented x3 - Psychiatric Exam Psychiatric exam: Normal Affect, Normal Mood - Skin Skin Exam: Dry, Intact, Normal Color, Warm Assessment and Plan (1) Pulmonary embolism Assessment & Plan: CT angio -ve for PE dc AC echo normal RV fx Status: Acute (2) COPD exacerbation Assessment & Plan: 2' to smoking bronchodilators Status: Acute (3) Dyspnea Assessment & Plan: ? interstitial lung injury from snortig cocaine steroids Status: Acute
[2017-06-02] MEDS: Azithromycin 500 MG in Sodium Chloride 0.9% 250 ML IVPB SCH (21:13)
[2017-06-02] MEDS: guaiFENesin DM 200 mg-20 mg/10 ml UD PO PRN (22:46)
[2017-06-03 00:28] VITALS: O2SAT 95
[2017-06-03] MEDS: Albuterol-Ipratrop 3 mg / 0.5 (3 ml) UD INH SCH ×3 (01:25→13:06)
--- NOTE | 2017-06-03 07:25 | CP.PCM.PN ---
Subjective - Date & Time of Evaluation Date of Evaluation: 06/03/17 Time of Evaluation: 07:25 Objective - Vital Signs/Intake and Output Vital Signs (last 24 hours): Temp Pulse Resp BP Pulse Ox 97.6 F 100 H 20 104/64 95 06/02/17 23:05 06/02/17 23:05 06/02/17 23:05 06/02/17 23:05 06/02/17 23:05 Intake and Output: 06/03/17 06/03/17 06:59 18:59 Intake Total 650 Balance 650 - Medications Medications: Current Medications Albuterol/Ipratropium (Duoneb 3 Mg/0.5 Mg (3 Ml) Ud) 3 ml INH RQ6 [facility] Last Admin: 06/03/17 07:00 Dose: 3 ml Guaifenesin/Dextromethorphan (Robitussin Dm) 10 ml PO Q4H PRN PRN Reason: Cough and congestion Last Admin: 06/02/17 22:46 Dose: 10 ml Azithromycin 500 mg/ Sodium (Chloride) 250 mls @ 167 mls/hr IVPB Q24H [facility] Last Admin: 06/02/17 21:13 Dose: 167 mls/hr Ceftriaxone Sodium 1 gm/ (Sodium Chloride) 100 mls @ 200 mls/hr IVPB Q24H [facility] Last Admin: 06/02/17 20:12 Dose: 200 mls/hr Lorazepam (Ativan) 0.5 mg PO TID PRN PRN Reason: Anxiety Last Admin: 06/02/17 22:14 Dose: 0.5 mg Methadone HCl (Methadone) 5 mg PO DAILY [facility] Stop: 06/04/17 10:01 Last Admin: 06/02/17 11:10 Dose: 5 mg Montelukast Sodium (Singulair) 10 mg PO HS [facility] Last Admin: 06/02/17 21:13 Dose: 10 mg Fluticasone/Salmeterol (Advair Diskus 250/50) 1 puff INH RQ12 [facility] Last Admin: 06/02/17 20:02 Dose: 1 puff Trazodone HCl (Desyrel) 100 mg PO HS [facility] Last Admin: 06/02/17 21:13 Dose: 100 mg - Labs Labs: 06/01/17 07:13 06/01/17 07:13 PT 13.3 SECONDS (9.7-12.2) H 05/31/17 05:59 INR 1.2 05/31/17 05:59 APTT 29 SECONDS (21-34) 05/31/17 05:59 Assessment and Plan (1) Pulmonary embolism Status: Acute (2) COPD exacerbation Status: Acute (3) Dyspnea Status: Acute
[2017-06-03 08:08] VITALS: BP 119/72; PULSE 65; TEMP 97.3
[2017-06-03] MEDS: Fluticasone-Salmeterol 250-50mcg Diskus INH SCH (10:32)
--- NOTE | 2017-06-03 12:43 | PCM.PYCHPN ---
Psychiatric Progress Note - Psychiatric Progress Note Patient seen today, length of contact: 16 min Patient Chief Complaint: "I'm fine" Problems Identified/Issues Discussed: The pt is seen, chart reviewed, case discussed with staff. Support given, CBT and FL used briefly No new symptoms reported, improving slowly and needs more time No SEs from medications, risks discussed. After care discussed Medication Change: Yes Medical Record Reviewed: Yes Mental Status Examination - Cognitive Function Orientation: Person, Place, Situation, Time Memory: Intact Attention: WNL Concentration: WNL Association: WNL Fund of Knowledge: WNL - Mood Mood: Anxious - Affect Affect: Constricted - Speech Speech: Appropriate - Formal Thought Process Formal Thought Process: No Impairment - Suicidal Ideation Suicidal Ideation: No - Homicidal Ideation Homicidal Ideation: No Goal/Treatment Plan - Goal/Treatment Plan Progress Toward Problem(s) and Goals/Treatment Plan: Opioid use disorder: Psychoeducation Supportive therapy, individual therapy Use FL for abstinence Opioid withdrawal Psychoeducation Supportive therapy, individual therapy Methadone taper Lorazepam 0.5 mg PO TID PRN Trazodone 100 mg PO prn Psych will sign off now as he is stable
--- NOTE | 2017-06-03 13:50 | CP.PCM.PN ---
Subjective - Date & Time of Evaluation Date of Evaluation: 06/03/17 Time of Evaluation: 13:45 - Subjective Subjective: 41 Y/O MALE SEEN AND EXAMINED TODAY, DENIES ANY CHEST PAIN, RESP EASY AND UNLABORED, NAD. Objective - Vital Signs/Intake and Output Vital Signs (last 24 hours): Temp Pulse Resp BP Pulse Ox 97.3 F L 65 20 119/72 95 06/03/17 08:00 06/03/17 08:00 06/03/17 08:00 06/03/17 08:00 06/03/17 08:00 Intake and Output: 06/03/17 06/03/17 06:59 18:59 Intake Total 650 Balance 650 - Medications Medications: Current Medications Albuterol/Ipratropium (Duoneb 3 Mg/0.5 Mg (3 Ml) Ud) 3 ml INH RQ6 [facility] Last Admin: 06/03/17 13:06 Dose: Not Given Guaifenesin/Dextromethorphan (Robitussin Dm) 10 ml PO Q4H PRN PRN Reason: Cough and congestion Last Admin: 06/02/17 22:46 Dose: 10 ml Azithromycin 500 mg/ Sodium (Chloride) 250 mls @ 167 mls/hr IVPB Q24H [facility] Last Admin: 06/02/17 21:13 Dose: 167 mls/hr Ceftriaxone Sodium 1 gm/ (Sodium Chloride) 100 mls @ 200 mls/hr IVPB Q24H [facility] Last Admin: 06/02/17 20:12 Dose: 200 mls/hr Lorazepam (Ativan) 0.5 mg PO TID PRN PRN Reason: Anxiety Last Admin: 06/02/17 22:14 Dose: 0.5 mg Methadone HCl (Methadone) 5 mg PO DAILY [facility] Stop: 06/04/17 10:01 Last Admin: 06/03/17 09:05 Dose: 5 mg Montelukast Sodium (Singulair) 10 mg PO HS [facility] Last Admin: 06/02/17 21:13 Dose: 10 mg Fluticasone/Salmeterol (Advair Diskus 250/50) 1 puff INH RQ12 [facility] Last Admin: 06/03/17 10:32 Dose: 1 puff Trazodone HCl (Desyrel) 100 mg PO HS [facility] Last Admin: 06/02/17 21:13 Dose: 100 mg - Labs Labs: 06/01/17 07:13 06/01/17 07:13 PT 13.3 SECONDS (9.7-12.2) H 05/31/17 05:59 INR 1.2 05/31/17 05:59 APTT 29 SECONDS (21-34) 05/31/17 05:59 Assessment and Plan - Assessment and Plan (Free Text) Plan: 41 Y/O MALE WITH PMHX ADMITTED FOR COPD EXCERBATION, DYSPNEA VQ SCAN- INTERMEDIATE PROBABILITY FOR PE CT CHEST- NEGATIVE FOR PE PT CLEARED FOR D/C PER DR SHERMAN, DR PEREZ, DR HONEYCUTT NO NEED FOR BLOOD THINNER AT THIS TIME F/U W/PMD AND CARDIOLOGY
== END 2017-06-03 14:02 | disposition home or self-care (01) | DRG 541 ==
LOC: C.ER 05:36 → C.9E 12:38 → C.5T 14:18
PROVIDERS: ADMIT Internal Medicine Nephrology; ATTEND Internal Medicine Nephrology
PROC: HZ56ZZZ Individual Psychotherapy for Substance Abuse Treatment, Psychoeducation (ICD-10-PCS; principal; 2017-06-01)
PROC: HZ59ZZZ Individual Psychotherapy for Substance Abuse Treatment, Supportive (ICD-10-PCS; 2017-06-01)
DX: J44.1 Chronic obstructive pulmonary disease with (acute) exacerbation (principal); I26.99 Other pulmonary embolism without acute cor pulmonale; F11.23 Opioid dependence with withdrawal; F14.10 Cocaine abuse, uncomplicated; F17.210 Nicotine dependence, cigarettes, uncomplicated; F10.10 Alcohol abuse, uncomplicated

== ENCOUNTER 2018-02-20 14:57 | Emergency (ER) | payer MEDICAID ==
[2018-02-20 14:57] VITALS: BMI 26.6
[2018-02-20 15:09] VITALS: BP 125/77; PULSE 106; RESP 18; TEMP 97.6; O2SAT 98
--- NOTE | 2018-02-20 15:24 | C.PDOC ---
History Of Present Illness 42 year old male presents to the emergency department requesting detox from heroin. Patient reports he last used prior to arrival. Patient was evaluated at [facility] for the same request, but was referred to [facility] due to there being no available Detox beds in [place]. Patient denies suicidal ideation. REQUESTING HEROIN DETOX. 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 CHRISAL @ [facility] FOR SAME, REFERRED TO [facility] DUE TO NO DETOX BEDS @ [facility]. NO OTHER REPORTED SX. DENIES SI. EXAM NEG Time Seen by Provider: 02/20/18 15:24 Chief Complaint (Nursing): Substance Abuse History Per: Patient History/Exam Limitations: no limitations Onset/Duration Of Symptoms: Hrs Current Symptoms Are (Timing): Still Present Modifying Factor(s): Other (heroin) Associated Symptoms: denies: Suicidal Thoughts, Suicidal Plan Past Medical History Reviewed: Historical Data, Nursing Documentation, Vital Signs Vital Signs: Last Vital Signs Temp 97.6 F 02/20/18 15:06 Pulse 106 H 02/20/18 15:06 Resp 18 02/20/18 15:06 BP 125/77 02/20/18 15:06 Pulse Ox 98 02/20/18 15:40 - Medical History PMH: COPD, Pulmonary Embolism Denies: Diabetes, Hepatitis, HIV, HTN, Chronic Kidney Disease, Seizures, Sexually Transmitted Disease Surgical History: No Surg Hx - [facility] Procedures DETOXIFICATION SERVICES FOR SUBSTANCE ABUSE TREATMENT (06/04/16) INDIV PSYCHOTHERAPY FOR SUBSTANCE ABUSE TREATMENT, SUPPORT (05/31/17) INDIV PSYCHOTHERAPY FOR SUBSTANCE ABUSE, PSYCHOEDUCATION (05/31/17) INJECT/INFUSE NEC (10/03/14) Family History: States: No Known Family Hx - Social History Hx Alcohol Use: Yes Hx Substance Use: Yes (8-10 bags heroin a day) - Immunization History Hx Tetanus Toxoid Vaccination: No Hx Influenza Vaccination: No Hx Pneumococcal Vaccination: No Review Of Systems Except As Marked, All Systems Reviewed And Found Negative. Constitutional: Negative for: Fever, Chills Gastrointestinal: Negative for: Nausea Neurological: Positive for: Altered Mental Status (under the influence of heroin ) Physical Exam - Physical Exam Appears: Non-toxic, No Acute Distress Skin: Normal Color, Warm, Dry Head: Atraumatic, Normacephalic Eye(s): bilateral: Normal Inspection Oral Mucosa: Moist Chest: Symmetrical Cardiovascular: Rhythm Regular Respiratory: Normal Breath Sounds Neurological/Psych: Normal Speech, Normal Cognition ED Course And Treatment O2 Sat by Pulse Oximetry: 98 (RA) Pulse Ox Interpretation: Normal - Physician Consult Information Time Consulting Physician Contacted: 15:40 Outcome Of Conversation: D/W CRISIS, NO BEDS AVAIL Disposition Counseled Patient/Family Regarding: Diagnosis, Need For Followup - Disposition Referrals: [facility],DETOX PRESCREEN [Other] Disposition: HOME/ ROUTINE Disposition Time: 15:34 Condition: STABLE Instructions: Opioid Use Disorder Forms: [employer] ([place]) - Clinical Impression Clinical Impression: Opiate abuse, continuous - Scribe Statement The provider has reviewed the documentation as recorded by the Scribe (John Lamb) Provider Attestation: All medical record entries made by the Scribe were at my direction and personally dictated by me. I have reviewed the chart and agree that the record accurately reflects my personal performance of the history, physical exam, medical decision making, and the department course for this patient. I have also personally directed, reviewed, and agree with the discharge instructions and disposition.
== END 2018-02-20 15:55 | disposition home or self-care (01) ==
LOC: C.ER 14:57
DX: F11.10 Opioid abuse, uncomplicated (principal); J44.9 Chronic obstructive pulmonary disease, unspecified; Z86.711 Personal history of pulmonary embolism

== ENCOUNTER 2018-11-29 09:06 | Inpatient (IN) | payer MEDICAID ==
[2018-11-29 09:06] VITALS: BMI 27.4
--- NOTE | 2018-11-29 09:31 | C.PDOC ---
History Of Present Illness 43 y/o male with a PMHx of opioid abuse, COPD, depression, and alcoholism presents to the ED requesting detox. States he last used heroin at 4:00am, 2 bags intranasally. Patient also reports suicidal ideation since this morning. States he has a plan to jump off a bridge. No other physical complaints. Patient denies any homicidal ideation or hallucinations. No alcohol use. He denies having any pain, fever, tremors, palpitations, seizures, chest pain, SOB, abdominal pain, back pain, nausea, vomiting, numbness, weakness, paresthesias, or any other associated complaints. Time Seen by Provider: 11/29/18 09:07 Chief Complaint (Nursing): Psychiatric Evaluation History Per: Patient History/Exam Limitations: no limitations Onset/Duration Of Symptoms: Hrs Current Symptoms Are (Timing): Still Present Suicide/Self Injury Attempted (Context): None Modifying Factor(s): Other (Heroin) Associated Symptoms: Suicidal Thoughts, Suicidal Plan (to jump off bridge) Additional History Per: Prior Records Past Medical History Reviewed: Historical Data, Nursing Documentation, Vital Signs Vital Signs: Last Vital Signs Temp 98.1 F 11/29/18 09:18 Pulse 95 H 11/29/18 09:18 Resp 20 11/29/18 09:18 BP 111/65 11/29/18 09:18 Pulse Ox 98 11/29/18 09:18 - Medical History PMH: Bipolar Disorder, COPD, Depression, Pulmonary Embolism Denies: Diabetes, Hepatitis, HIV, HTN, Chronic Kidney Disease, Seizures, Sexually Transmitted Disease Other PMH: Opioid abuse, Alcohol abuse Other Surgeries: Right knee surgery - [facility] Procedures DETOXIFICATION SERVICES FOR SUBSTANCE ABUSE TREATMENT (06/04/16) INDIV PSYCHOTHERAPY FOR SUBSTANCE ABUSE TREATMENT, SUPPORT (05/31/17) INDIV PSYCHOTHERAPY FOR SUBSTANCE ABUSE, PSYCHOEDUCATION (05/31/17) INJECT/INFUSE NEC (10/03/14) Family History: States: Unknown Family Hx - Social History Hx Tobacco Use: Yes Hx Alcohol Use: Yes Hx Substance Use: Yes (8-10 bags heroin a day) - Immunization History Hx Tetanus Toxoid Vaccination: No Hx Influenza Vaccination: No Hx Pneumococcal Vaccination: No Review Of Systems Except As Marked, All Systems Reviewed And Found Negative. Constitutional: Negative for: Fever, Sweats Eyes: Negative for: Vision Change ENT: Negative for: Nose Congestion, Throat Pain Cardiovascular: Negative for: Chest Pain, Palpitations, Light Headedness Respiratory: Negative for: Cough, Shortness of Breath Gastrointestinal: Negative for: Nausea, Vomiting, Abdominal Pain Genitourinary: Negative for: Dysuria, Frequency Musculoskeletal: Negative for: Neck Pain, Back Pain Skin: Negative for: Rash Neurological: Negative for: Weakness, Numbness, Altered Mental Status, Headache, Dizziness Psych: Positive for: Suicidal ideation (with plan to jump off bridge). Negative for: Psychosis, Withdrawal, Other (HI, hallucinations) Physical Exam - Physical Exam Appears: Non-toxic, No Acute Distress Skin: Warm, Dry, No Rash Head: Atraumatic, Normacephalic Eye(s): bilateral: Normal Inspection, PERRL, EOMI Nose: Normal Oral Mucosa: Moist Neck: Normal ROM, Supple, No Other (no meningeal signs) Chest: Symmetrical Cardiovascular: Rhythm Regular, No Murmur Respiratory: Normal Breath Sounds, No Accessory Muscle Use, Other (No respiratory distress) Gastrointestinal/Abdominal: Soft, No Tenderness, No Distention Back: Normal Inspection, No CVA Tenderness Extremity: Normal ROM, Capillary Refill (<2s) Extremity: Bilateral: Atraumatic, Normal Color And Temperature Pulses: Left Radial: Normal, Right Radial: Normal Neurological/Psych: Oriented x3, Normal Speech, Normal Motor, Normal Sensation, Other (Flat affect) Gait: Steady ED Course And Treatment - Laboratory Results Result Diagrams: 11/29/18 09:51 11/29/18 09:51 O2 Sat by Pulse Oximetry: 98 (RA) Pulse Ox Interpretation: Normal Medical Decision Making Medical Decision Making: Impression: Suicidal ideation, Detox Plan: Labs ordered for medical clearance. Patient placed on 1:1 observation. Pending crisis evaluation. 1045 Labwork reviewed, patient is medically cleared for psychiatric evaluation. 1135 Patient is to be admitted to detox unit under Dr. Laura for opioid use disorder, severe. Pt in NAD with VSS at this time. Pt made aware of change in disposition. Disposition - Disposition Disposition: HOSPITALIZED Disposition Time: 11:33 Condition: STABLE - Clinical Impression Clinical Impression: Opioid use disorder, severe, dependence - PA / DOUBLER OPERATOR / Resident Statement MD/DO has reviewed & agrees with the documentation as recorded. - Scribe Statement The provider has reviewed the documentation as recorded by the Scribe Enedina Ovalle All medical record entries made by the Scribe were at my direction and personally dictated by me. I have reviewed the chart and agree that the record accurately reflects my personal performance of the history, physical exam, medical decision making, and the department course for this patient. I have also personally directed, reviewed, and agree with the discharge instructions and disposition.
[2018-11-29 09:56] LABS: BASO % 0.9 % (0.0-2.0); EOS # 0.5 K/uL (0.0-0.7); HEMOGLOBIN 15.3 g/dL (12.0-18.0); LYMPH # 1.2 K/uL (1.0-4.3); LYMPH % 25.3 % (20.0-40.0); MEAN CELL VOLUME 86.4 fL (80.0-94.0); MEAN CORPUSCULAR HEMOGLOBIN 29.3 pg (27.0-31.0); MEAN CORPUSCULAR HGB CONC 33.9 g/dL (33.0-37.0); MEAN PLATELET VOLUME 8.8 fL (7.2-11.7); MONO # 0.2 K/uL (0.0-0.8); MONO % 4.6 % (0.0-10.0); NEUT # 2.8 K/uL (1.8-7.0); NEUT % 58.2 % (50.0-75.0); NRBC % 0.1 % (0.0-2.0); RBC 5.23 Mil/uL (4.40-5.90); RED CELL DISTRIBUTION WIDTH 13.6 % (11.5-14.5); WHITE BLOOD COUNT 4.8 K/uL (4.8-10.8)
[2018-11-29 10:11] LABS: URINE BILIRUBIN NEGATIVE (NEGATIVE); URINE BLOOD NEGATIVE (NEGATIVE); URINE CLARITY Hazy (Clear); URINE COLOR Yellow (YELLOW); URINE GLUCOSE (UA) NORMAL (Normal); URINE LEUKOCYTE ESTERASE NEG Leu/uL (Negative); URINE PROTEIN 1+ mg/dL (NEGATIVE); URINE UROBILINOGEN NORMAL mg/dL (0.2-1.0)
[2018-11-29 10:22] LABS: ACETAMINOPHEN < 10.0 ug/mL (10.0-30.0); SALICYLATE < 1.0 mg/dL 1
[2018-11-29 10:24] LABS: ALB/GLOB RATIO 1.5 (1.0-2.1); ALBUMIN 4.7 g/dL (3.5-5.0); ALT/SGPT 39 U/L (21-72); AST/SGOT 35 U/L (17-59); BLOOD UREA NITROGEN 12 mg/dL (9-20); CALCIUM 9.5 mg/dl (8.6-10.4); GFR NON-AFRICAN AMERICAN > 60
[2018-11-29 10:33] LABS: BARBITURATES, UR NEGATIVE (NEGATIVE); BENZODIAZEPINES, UR NEGATIVE (NEGATIVE); PHENCYCLIDINE, UR NEGATIVE (NEGATIVE)
[2018-11-29 11:03] LABS: OPIATES, UR POSITIVE (NEGATIVE)
--- NOTE | 2018-11-29 12:51 | PCM.PSYCH ---
Initial Psychiatric Evaluation - Initial Psychiatric Evaluation Type of Admission: Voluntary Legal Status: Capacity Chief Complaint (in patient's own words): "I need detox" History of Present Illness and Precipitating Events: The pt is seen, chart reviewed and case discussed. He is known from previous admissions. He is a 43 yo LM, single with 2 children, plus one who was murdered 5 years ago in [place]. 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 The patient states he is still using 10 bags heroin intranasally. He started 6 years ago and has been using along with some painkillers. He also has been using cocaine either by nasally or crack since age 14. He says he uses 2-3 days a week. He smokes cigarettes half pack per day. He denies alcohol use. He smokes marijuana almost every day. He claims he stopped Xanax longer go. He denies all other drugs. This is his 3rd detox and he has never been to NA or rehabilitation. Past psych history: Patient has depressive symptoms, one suicide attempt long ago and has insomnia. He threatened suicide again in ED had he not admitted to detox Medical history: Denies Family psych history: Brother used cocaine. Past Psychiatric History - Past Psychiatric History Previous Treatment History: Intensive Outpatient Pertinent Medical Hx (Current Medical&Sleep Prob, Allergies): Allergies Allergy/AdvReac Type Severity Reaction Status Date / Time APPLE Allergy RASH Uncoded 11/29/18 09:24 SHRIMP Allergy RASH Uncoded 11/29/18 09:24 Unobtainable 11/29/18 Review of Systems - Psychiatric Psychiatric: Abnormal Sleep Pattern, Anhedonia, Anxiety, Depression, Difficulty Concentrating, Irritability. absent: Homicidal Ideation, Paranoia, Suicidal Ideation Mental Status Examination - Personal Presentation Personal Presentation: Looks stated age - Affect Affect: Constricted - Motor Activity Motor Activity: Calm - Reliability in Providing Information Reliability in Providing Information: Good - Speech Speech: Organized - Mood Mood: Depressed, Anxious - Formal Thought Process Formal Thought Process: No Impairment - Cognitive Functions Orientation: Person, Place, Situation, Time Sensorium: Alert Attention/Concentration: Easily distracted Abstract Thinking: [place] Estimate of Intelligence: Below average Judgement: Intact, as evidence by: Insight regarding need for hospitalization Memory: Recent intact, as evidence by: Ability to recall events of the day, Remote intact, as evidenced by: Ability to recall historical events - Risk Risk: Withdrawal, Diminished functioning - Strength & Assets Inventory Strength & Assets Inventory: Life experience, Cooperative - Limitations Limitations: Other DSM 5 DX - DSM 5 DSM 5 Diagnosis: Opioid withdrawal Opioid use severe Depressive d/o - unspecified Cocaine use d/o - severe - Recommended/Plan of Treatment Treatment Recommendations and Plan of Treatment: Taper with methadone Remeron for depression Gabapentin for augmentation if needed As needed medications All risks, benefits and alternatives of the meds discussed, and the pt agreed and understood. Attend groups and activities Supportive therapy and psychoeducation [place] for abstinence CBT for relapse prevention Encourage MAT Refer to rehab or IOP, and self-help groups Teach healthy lifestyle methods, i.e. diet, exercise, meditation Smoking cessation with [place] Nicotine patch if needed 34 min Projected ELOS: 4-5 days - Smoking Cessation Smoking Cessation Initiated: Yes
[2018-11-29] MEDS ORDERED: Aluminum Hydroxide/Magnesium Hydroxide Susp (30 mL) PO PRN (12:52)
--- NOTE | 2018-11-29 15:04 | PCM.BM ---
<Katharine Penaloza - Last Filed: 11/29/18 15:02> Treatment Plan Problems - Problems identified on initial assessmt Defensive Coping Date Initiated: 11/29/18 Assessment reference: NA Status: Active Social Isolation Date Initiated: 11/29/18 Assessment reference: NA Status: Active Low Motivation to Change Date Initiated: 11/29/18 Assessment reference: NA Status: Active Treatment assets and liabiliti Patient Assests: cooperative, ADL independent, negotiates basic needs Patient Liabilities: substance abuse - Milieu Protocol Maintain good personal hygiene: daily Encourage regular showers, daily Remind patient to perform daily oral care, daily Assist patient to perform ADL's Conduct patient checks and document Observation sheet: Q15 minutes Maintain personal safety: every shift Educate patient to report safety concerns to staff, every shift Monitor environment for contraband/sharps Medication safety: Monitor for expected outcome, potential side effects: every shift, Assess barriers to learning: every shift, Assess readiness for medication education: every shift <Janet Rodriguez - Last Filed: 12/01/18 14:22> Family Contact Family involvement: Famliy/SO not involved - Goals for Treatment Patient goals for treatment: Complete detox and transition to an outpatient program. Discharge/Continuing Care - Education Needs Education Needs: Patient Medication, Patient Diagnosis/Disease Process, Patient Coping Skills, Patient Anger Management skills, Patient Placement options, Patient Community resources - Discharge Discharge Criteria: No longer exhibiting s/s of withdrawal, Reduction of target symptoms Discharge to:: Home - Treatment Team Participation Patient/Family/SO Statement: 12/01/18 14:23 "I don't really know. Maybe I can try outpatient I guess." Discussed with Family/SO: No Was Patient/Family/SO present at Treatment Team Meeting: Yes <Zenaida Laura - Last Filed: 12/02/18 10:23> - Diagnosis (1) Opioid use disorder, severe, dependence Status: Acute Interventions: 11/29/18 20:23 * Assess 7x/week regarding severity of withdrawal * Educate regarding risks, benefits, side effects and alternatives of medications * Use Motivational Interviewing for abstinence * Use CBT for relapse prevention * Medication management for withdrawal symptoms * Encourage medication assisted treatment *
--- NOTE | 2018-11-30 13:53 | PCM.PYCHPN ---
Psychiatric Progress Note - Psychiatric Progress Note Patient seen today, length of contact: 17 min Patient Chief Complaint: "I am not well yet" Problems Identified/Issues Discussed: The pt is seen, chart reviewed, case is discussed with staff. The pt is compliant with medications and reports no side-effects. Symptoms are improving but needs more time to stabilize and to avoid relapse. Pt attends groups and activities. Support given, psycho-education provided. After care discussed. Medication Change: Yes (detox changes daily) Medical Record Reviewed: Yes Mental Status Examination - Cognitive Function Orientation: Person, Place, Situation, Time Memory: Intact Attention: WNL Concentration: Poor Association: WNL Fund of Knowledge: WNL - Mood Mood: Depressed, Anxious - Affect Affect: Constricted - Speech Speech: Appropriate - Formal Thought Process Formal Thought Process: No Impairment - Suicidal Ideation Suicidal Ideation: No - Homicidal Ideation Homicidal Ideation: No Goal/Treatment Plan - Goal/Treatment Plan Need for Continued Stay: Discharge may exacerbated symptoms, Severe functional impairment Progress Toward Problem(s) and Goals/Treatment Plan: Taper with methadone Remeron for depression Gabapentin for augmentation if needed As needed medications All risks, benefits and alternatives of the meds discussed, and the pt agreed and understood. Attend groups and activities Supportive therapy and psychoeducation [place] for abstinence CBT for relapse prevention Encourage MAT Refer to rehab or IOP, and self-help groups Teach healthy lifestyle methods, i.e. diet, exercise, meditation Smoking cessation with [place] Nicotine patch if needed
[2018-12-02 06:22] VITALS: O2SAT 99
[2018-12-02 09:14] VITALS: BP 113/76; PULSE 84; RESP 20; TEMP 98.3
--- NOTE | 2018-12-02 09:28 | PCM.PYCHDC ---
Mental Status Examination - Mental Status Examination Orientation: Person Discharge Summary - Discharge Note Consultations:: List each consultation separately and include: 1. Reason for request. 2. Findings. 3. Follow-up Summary of Hospital Course include:: 1. Description of specific treatment plan utilized for patients during their course of treatmen. 2. Summarize the time- course for resolution of acute symptoms and/or regressed behaviors. 3. Describe issues identified and worked on during hospitalization. 4. Describe medication utilized. 5. Describe medical problems identified and treated. 6. Reassessment of suicide risk Summary of Hospital Course: The pt is seen, chart reviewed and case discussed. He is known from previous admissions. He is a 43 yo LM, single with 2 children, plus one who was murdered 5 years ago in [place]. 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 The patient states he is still using 10 bags heroin intranasally. He started 6 years ago and has been using along with some painkillers. He also has been using cocaine either by nasally or crack since age 14. He says he uses 2-3 days a week. He smokes cigarettes half pack per day. He denies alcohol use. He smokes marijuana almost every day. He claims he stopped Xanax longer go. He denies all other drugs. This is his 3rd detox and he has never been to NA or rehabilitation. Past psych history: Patient has depressive symptoms, one suicide attempt long ago and has insomnia. He threatened suicide again in ED had he not admitted to detox Medical history: Denies Family psych history: Brother used cocaine. He refused all plans. Risks discussed. - Final Diagnosis (DSM 5) Condition upon Discharge: STABLE Disposition: HOME/ ROUTINE Follow-up Treatment Plan: Taper with methadone Remeron for depression Gabapentin for augmentation if needed As needed medications All risks, benefits and alternatives of the meds discussed, and the pt agreed and understood. Attend groups and activities Supportive therapy and psychoeducation [place] for abstinence CBT for relapse prevention Encourage MAT Refer to rehab or IOP, and self-help groups Teach healthy lifestyle methods, i.e. diet, exercise, meditation Smoking cessation with [place] Nicotine patch if needed Prescriptions/Medication Reconciliation: Mirtazapine [Remeron] 15 mg PO HS #30 tab traZODone [Desyrel] 100 mg PO HS PRN #30 tab PRN Reason: Insomnia
--- NOTE | 2018-12-02 10:24 | PCM.PYCHPN ---
Psychiatric Progress Note - Psychiatric Progress Note Patient seen today, length of contact: 19 min Patient Chief Complaint: "I am a little better" Problems Identified/Issues Discussed: The pt is seen, chart reviewed, case discussed with staff. Support and psychoeducation given, CBT and DE used briefly Pt is improving slowly and needs more time, still has ongoing symptoms. He also revealed that he sometimes sees things , like a child, when he was withdrawing or at home when he was trying to sleep. His mo had the same. No other psychotic sx No SEs from medications, risks discussed. After care discussed Medication Change: Yes (detox changes daily) Medical Record Reviewed: Yes Mental Status Examination - Cognitive Function Orientation: Person, Place, Situation, Time Memory: Intact Attention: Poor Concentration: Poor Association: WNL Fund of Knowledge: WNL - Mood Mood: Depressed, Anxious - Affect Affect: Constricted - Speech Speech: Appropriate - Formal Thought Process Formal Thought Process: No Impairment - Suicidal Ideation Suicidal Ideation: No - Homicidal Ideation Homicidal Ideation: No Goal/Treatment Plan - Goal/Treatment Plan Need for Continued Stay: Discharge may exacerbated symptoms, Severe functional impairment Progress Toward Problem(s) and Goals/Treatment Plan: Taper with methadone Remeron for depression Gabapentin for augmentation if needed As needed medications All risks, benefits and alternatives of the meds discussed, and the pt agreed and understood. Attend groups and activities Supportive therapy and psychoeducation [place] for abstinence CBT for relapse prevention Encourage MAT Refer to rehab or IOP, and self-help groups Teach healthy lifestyle methods, i.e. diet, exercise, meditation Smoking cessation with DE Nicotine patch if needed
== END 2018-12-02 09:45 | disposition home or self-care (01) | DRG 772 ==
LOC: C.ER 09:06 → C.7D 11:35
PROVIDERS: ADMIT Psychiatry & Neurology Psychiatry; ATTEND Psychiatry & Neurology Psychiatry
PROC: HZ2ZZZZ Detoxification Services for Substance Abuse Treatment (ICD-10-PCS; principal; 2018-11-29)
PROC: HZ46ZZZ Group Counseling for Substance Abuse Treatment, Psychoeducation (ICD-10-PCS; 2018-11-29)
PROC: HZ59ZZZ Individual Psychotherapy for Substance Abuse Treatment, Supportive (ICD-10-PCS; 2018-11-29)
PROC: HZ81ZZZ Medication Management for Substance Abuse Treatment, Methadone Maintenance (ICD-10-PCS; 2018-11-29)
PROC: HZ80ZZZ Medication Management for Substance Abuse Treatment, Nicotine Replacement (ICD-10-PCS; 2018-11-29)
PROC: GZ3ZZZZ Medication Management (ICD-10-PCS; 2018-11-29)
DX: F11.23 Opioid dependence with withdrawal (principal); F14.10 Cocaine abuse, uncomplicated; F12.10 Cannabis abuse, uncomplicated; F32.9 Major depressive disorder, single episode, unspecified; F31.9 Bipolar disorder, unspecified; R45.851 Suicidal ideations; F17.210 Nicotine dependence, cigarettes, uncomplicated; J44.9 Chronic obstructive pulmonary disease, unspecified; Z86.711 Personal history of pulmonary embolism